=== PATIENT | male | born 1995 | race Caucasian/White ===

== ENCOUNTER → 2021-01-23 10:00 | Outpatient (BNVA) | payer BC, SELFPAY | PROVIDERS: Visit Provider Nurse Practitioner Family | DX: M25.50 Pain in unspecified joint (principal); R53.83 Other fatigue; F32.9 Major depressive disorder, single episode, unspecified; F41.9 Anxiety disorder, unspecified; Z68.31 Body mass index [BMI] 31.0-31.9, adult | CPT/HCPCS: 80053; 85025; 85651; 86000; 86140; 86618; 86666; 86757 ==

== ENCOUNTER → 2021-02-02 13:31 | Outpatient (BNVA) | payer BC, SELFPAY | PROVIDERS: Visit Provider Nurse Practitioner Family | DX: R70.0 Elevated erythrocyte sedimentation rate (principal); M25.50 Pain in unspecified joint; R79.82 Elevated C-reactive protein (CRP) | CPT/HCPCS: 84443; 84550; 86038; 86431 ==

== ENCOUNTER → 2025-02-26 09:45 | Outpatient (BNVA) | payer BC, SELFPAY | PROVIDERS: PCP Nurse Practitioner Family; Visit Provider Nurse Practitioner Family | DX: R53.83 Other fatigue (principal); E56.9 Vitamin deficiency, unspecified; R03.0 Elevated blood-pressure reading, without diagnosis of hypertension | CPT/HCPCS: 80053; 82306; 82607; 84443; 85025 ==